=== PATIENT | female | born 2005 | race Caucasian/White ===

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

== ENCOUNTER 2024-04-11 21:43 | Emergency (ER) | payer OTHER, SELFPAY ==
[2024-04-11 22:58] LABS: Bilirubin 2+ (Negative); Blood, Urine 3+ (Negative); CAUTI Indications for Culture Pelvic or flank pain; Clarity Turbid (Clear); Glucose, Urine (Dipstick) Normal (Negative); Ketone, Urine 100 mg/dL (Negative); Leukocyte 75 Leu/uL (Negative); Nitrite Negative (Negative); Protein, Urine (Dipstick) 50 mg/dL (Neg-Trace); RBC/HPF Greater than 50 HPF (0-3); Specific Gravity, Urine 1.033 (1.002-1.036); Urobilinogen Greater than 12 mg/dL (Less than 2); WBC/HPF 21-50 HPF (0-3)
[2024-04-11 23:20] LABS: Bacteria/HPF 1+ HPF (None Seen)
[2024-04-11 23:21] LABS: Urine Culture Reflex Yes Yes
== END 2024-04-11 22:49 | disposition left against medical advice (07) ==
LOC: ERS 21:43
DX: Z53.21 Procedure and treatment not carried out due to patient leaving prior to being seen by health care provider (principal)
CPT/HCPCS: 81001; 87086

== ENCOUNTER 2024-04-14 01:22 | Inpatient (IN) | payer SELFPAY ==
[2024-04-14] MEDS ORDERED: Ondansetron ODT 4 MG TAB ONE (01:56)
[2024-04-14 02:17] LABS: Bacteria/HPF None Seen HPF (None Seen); Bilirubin 1+ (Negative); Blood, Urine 3+ (Negative); CAUTI Indications for Culture Pelvic or flank pain; Clarity Clear (Clear); Glucose, Urine (Dipstick) Normal (Negative); Ketone, Urine 150 mg/dL (Negative); Leukocyte 25 Leu/uL (Negative); Nitrite Negative (Negative); Pregnancy Test - Urine (BHCG) Negative (Negative); Protein, Urine (Dipstick) 30 mg/dL (Neg-Trace); RBC/HPF 0-3 HPF (0-3); Specific Gravity, Urine 1.033 (1.002-1.036); Urine Culture Reflex No No; Urobilinogen 12 mg/dL (Less than 2)
[2024-04-14 02:18] LABS: Pregu Control Background? CLEAR/WHITE (CLR/WHITE); Pregu Control Bar Appear? YES (CONTROL BAR); Specific Gravity 1.033 (1.002-1.036)
[2024-04-14] MEDS ORDERED: Famotidine 20 MG TAB ONE (03:18)
[2024-04-14] MEDS ORDERED: Acetaminophen 500 MG TAB ONE (03:18)
[2024-04-14 03:19] LABS: #Basophils 0.04 10x3/uL (0.0-0.2); #Eosinophils Less than 0.03 10x3/uL (0.0-0.7); %Basophils 0.5 % (0.0-1.0); %Eosinophils 0.1 % (0.0-10.0); %Monocytes 4.9 % (0.0-4.0); %Neutrophils 81.1 % (31.0-61.0); Hematocrit 36.4 % (36.0-47.0); Hemoglobin 13.5 g/dL (12.0-16.0); Mean Corpuscular HGB CONC 37.1 g/dL (32.0-36.0); Mean Corpuscular Hemoglobin 31.3 pg (25.0-35.0); Mean Corpuscular Volume 84.5 fL (78.0-98.0); Mean Platelet Volume 10.3 fL (7.4-10.4); Platelet Count 267 10x3/uL (130-400); RBC Distribution Width 14.2 % (11.5-14.5); Red Blood Cell (RBC) Count 4.31 mill/uL (4.00-5.20)
[2024-04-14 03:33] LABS: ALT (SGPT) 137 U/L (Less than 34); AST (SGOT) 167 U/L (11-34); Albumin 4.8 g/dL (3.1-4.5); Alkaline Phosphatase 233 U/L (40-100); Anion Gap 17 mmol/L (10-20); BUN (Urea Nitrogen) 11 mg/dL (8.4-21.0); Calc. Creatinine Clearance 0 mL/min (70-130); Calcium 9.6 mg/dL (7.8-10.44); Carbon Dioxide 23 mmol/L (22-29); Chloride 106 mmol/L (98-107); Estimated GFR 132; Globulin 3.3 g/dL (2.4-3.5); Glucose 104 mg/dL (70-105); Lipase 20 U/L (8-78); Potassium 3.5 mmol/L (3.5-5.1); Protein, Total 8.1 g/dL (6.0-8.3); Sodium 142 mmol/L (136-145)
[2024-04-14] MEDS ORDERED: Morphine 4 MG/ML VIAL ONE (06:05)
[2024-04-14 06:36] VITALS: BMI 27.3
[2024-04-14] MEDS: Sodium Chloride 0.9% 1,000 ML IV SCH (06:43)
[2024-04-14] MEDS ORDERED: Ondansetron PF 4 MG/2 ML Vial IVP PRN (07:26)
[2024-04-14] MEDS ORDERED: Promethazine HCl 25 MG/ML VIAL IM PRN (07:26)
[2024-04-14] MEDS ORDERED: HYDROcodone/Acetaminophen 5/325 mg Tablet PO PRN (07:26)
[2024-04-14] MEDS ORDERED: Acetaminophen 325 MG TAB PO PRN (07:26)
[2024-04-14] MEDS ORDERED: Dextrose 50% Abboject 50 ML SYRINGE SLOW IVP PRN (07:26)
[2024-04-14] MEDS ORDERED: Glucagon 1 MG/ML KIT IM PRN (07:26)
[2024-04-14] MEDS ORDERED: Dextrose 5% in Water 1,000 ML IV PRN (07:26)
[2024-04-14] MEDS: Lactated Ringer's 1,000 ML IV SCH (08:20)
[2024-04-14] MEDS ORDERED: Midazolam HCl 2 mg/2 ml Vial ONE ×2 (11:36→11:39)
[2024-04-14] MEDS ORDERED: Lidocaine 1% PF 5 ML VIAL ONE (11:38)
[2024-04-14] MEDS ORDERED: Dexamethasone 20 MG/5 ML VIAL ONE (11:38)
[2024-04-14] MEDS ORDERED: Rocuronium Bromide 10 MG/ML (10ML VIAL) ONE (11:38)
[2024-04-14] MEDS ORDERED: SUCCINYLCHOLINE/SOD CL,ISO/PF 200 MG/10 ML SYRINGE FS ONE (11:38)
[2024-04-14] MEDS ORDERED: fentaNYL PF 100 MCG/2 ML SYRINGE ONE (11:38)
[2024-04-14] MEDS ORDERED: Ondansetron PF 4 MG/2 ML Vial ONE (11:38)
[2024-04-14] MEDS ORDERED: PROPOFOL 20 ML ONE (11:39)
[2024-04-14] MEDS ORDERED: Midazolam HCl 2 mg/2 ml Vial IVP PRN (11:43)
[2024-04-14] MEDS ORDERED: cefOXitin 2 GM VIAL ONE (12:04)
[2024-04-14] MEDS ORDERED: Iopamidol 20 ML FS ONE (12:04)
[2024-04-14] MEDS ORDERED: fentaNYL 50 mcg/mL 1 mL Vial ONE ×3 (12:50→14:14)
[2024-04-14] MEDS ORDERED: SUGAMMADEX SODIUM 200 MG/2 ML VIAL ONE ×2 (12:51→13:03)
[2024-04-14] MEDS ORDERED: Glycopyrrolate 0.2 MG/ML 5 ML SYRINGE ONE (13:07)
[2024-04-14] MEDS ORDERED: HYDROmorphone 0.5 MG/0.5 ML SYRINGE ONE (13:25)
[2024-04-14] MEDS ORDERED: traMADol HCl 50 MG TAB PO PRN (14:08)
[2024-04-14] MEDS: Morphine 2 MG/ML VIAL SLOW IVP PRN (15:03)
[2024-04-14] MEDS: traMADol HCl 50 MG TAB PO SCH (17:41)
[2024-04-14] MEDS: Acetaminophen 325 MG TAB PO SCH (17:41)
[2024-04-14] MEDS: Piperacillin/Tazobactam 3.375 GM in Sodium Chloride 0.9% 100 ML IVPB SCH ×2 (19:45→22:07)
[2024-04-15 05:03] LABS: #Basophils Less than 0.03 10x3/uL (0.0-0.2); #Eosinophils Less than 0.03 10x3/uL (0.0-0.7); %Basophils 0.2 % (0.0-1.0); %Lymphocytes 10.4 % (28.0-48.0); %Monocytes 3.5 % (0.0-4.0); %Neutrophils 85.7 % (31.0-61.0); Hematocrit 31.7 % (36.0-47.0); Hemoglobin 11.3 g/dL (12.0-16.0); Mean Corpuscular HGB CONC 35.6 g/dL (32.0-36.0); Mean Corpuscular Hemoglobin 31.7 pg (25.0-35.0); Mean Corpuscular Volume 88.8 fL (78.0-98.0); Mean Platelet Volume 10.4 fL (7.4-10.4); Platelet Count 224 10x3/uL (130-400); RBC Distribution Width 14.3 % (11.5-14.5); Red Blood Cell (RBC) Count 3.57 mill/uL (4.00-5.20)
[2024-04-15 05:22] LABS: ALT (SGPT) 107 U/L (Less than 34); AST (SGOT) 65 U/L (11-34); Albumin 3.6 g/dL (3.1-4.5); Alkaline Phosphatase 139 U/L (40-100); Anion Gap 11 mmol/L (10-20); BUN (Urea Nitrogen) Less than 4 mg/dL (8.4-21.0); Bilirubin, Total 1.3 mg/dL (0.3-1.2); Calc. Creatinine Clearance 216 mL/min (70-130); Calcium 8.7 mg/dL (7.8-10.44); Carbon Dioxide 23 mmol/L (22-29); Chloride 110 mmol/L (98-107); Estimated GFR 133; Globulin 2.5 g/dL (2.4-3.5); Glucose 106 mg/dL (70-105); Potassium 3.7 mmol/L (3.5-5.1); Protein, Total 6.1 g/dL (6.0-8.3); Sodium 140 mmol/L (136-145)
[2024-04-15] MEDS ORDERED: fentaNYL PF 100 MCG/2 ML SYRINGE ONE (07:20)
[2024-04-15] MEDS ORDERED: PROPOFOL 20 ML ONE (07:20)
[2024-04-15] MEDS ORDERED: Lidocaine 1% PF 5 ML VIAL ONE (07:21)
[2024-04-15] MEDS ORDERED: Rocuronium Bromide 10 MG/ML (10ML VIAL) ONE (07:22)
[2024-04-15] MEDS ORDERED: SUCCINYLCHOLINE/SOD CL,ISO/PF 200 MG/10 ML SYRINGE FS ONE (08:19)
[2024-04-15] MEDS ORDERED: Dexamethasone 4 mg/ml Vial ONE ×2 (08:23→09:09)
[2024-04-15] MEDS ORDERED: Ondansetron PF 4 MG/2 ML Vial ONE (08:23)
[2024-04-15] MEDS ORDERED: Iopamidol 30 ML ONE (08:25)
[2024-04-15] MEDS ORDERED: Indomethacin 50 MG SUPP ONE (08:29)
[2024-04-15] MEDS ORDERED: GLYCOPYRROLATE/PF 0.2 MG/ML VIAL ONE (08:35)
[2024-04-16 05:22] LABS: ALT (SGPT) 73 U/L (Less than 34); AST (SGOT) 28 U/L (11-34); Albumin 3.4 g/dL (3.1-4.5); Alkaline Phosphatase 111 U/L (40-100); Anion Gap 9 mmol/L (10-20); BUN (Urea Nitrogen) 7 mg/dL (8.4-21.0); Bilirubin, Total 1.2 mg/dL (0.3-1.2); Calc. Creatinine Clearance 196 mL/min (70-130); Calcium 8.5 mg/dL (7.8-10.44); Carbon Dioxide 26 mmol/L (22-29); Chloride 109 mmol/L (98-107); Estimated GFR 130; Globulin 2.5 g/dL (2.4-3.5); Glucose 98 mg/dL (70-105); Potassium 3.6 mmol/L (3.5-5.1); Protein, Total 5.9 g/dL (6.0-8.3); Sodium 140 mmol/L (136-145)
[2024-04-16 09:49] VITALS: BP 101/60; TEMP 98.4
== END 2024-04-16 10:30 | disposition home or self-care (01) | DRG 418 ==
LOC: ERS 01:22 → ERHOLD 06:14 → SURG A 14:46
PROVIDERS: ADMIT Surgery; ATTEND Surgery
PROC: 0FT44ZZ Resection of Gallbladder, Percutaneous Endoscopic Approach (ICD-10-PCS; principal; 2024-04-14)
PROC: 0FC98ZZ Extirpation of Matter from Common Bile Duct, Via Natural or Artificial Opening Endoscopic (ICD-10-PCS; 2024-04-15)
PROC: 0FC78ZZ Extirpation of Matter from Common Hepatic Duct, Via Natural or Artificial Opening Endoscopic (ICD-10-PCS; 2024-04-15)
PROC: BF101ZZ Fluoroscopy of Bile Ducts using Low Osmolar Contrast (ICD-10-PCS; 2024-04-15)
DX: K80.42 Calculus of bile duct with acute cholecystitis without obstruction (principal); K59.39 Other megacolon; K80.00 Calculus of gallbladder with acute cholecystitis without obstruction
CPT/HCPCS: 36415; 47532; 74330; 76705; 80053; 81001; 81025; 83690; 85025; 88304; 96361; 96374; A6258; C1713; J0694; J1100; J1171; J2250; J2270; J2272; J2405; J2543; J2704; J3010; J3490; J7030; J7120; Q0162; Q9966; Q9967